=== PATIENT | male | born 1935 | race Caucasian/White ===

== ENCOUNTER 2016-07-03 04:55 | Inpatient (IN) ==
[2016-06-28 13:55] LABS: Appearance,Urine CLEAR; Bilirubin,Urine NEG (NEG); Color,Urine YELLOW; Glucose,Urine (UA) NEGATIVE (NEG); Leukocyte Esterase,Urine NEG /uL (NEG); Nitrate,Urine NEG (NEG); Protein,Urine NEG (NEG); Specific Gravity,Urine 1.021 (1.000-1.035); Urine Blood NEG mg/dL (<0.03); Urobilinogen,Urine NEG (NEG)
[2016-06-28 14:58] LABS: Blood Urea Nitrogen 19 mg/dl (8-23)
[2016-06-28 15:12] LABS: Basophils # (Auto) 0 K/mcL (0.0-0.3); Basophils % (Auto) 0.6 % (0.0-2.0); Eosinophils # (Auto) 0.1 K/mcL (0.0-0.7); Eosinophils % (Auto) 1.8 % (0.0-7.0); Granulocytes % (Auto) 63.5 % (38.0-78.0); Lymphocytes # (Auto) 1.7 K/mcL (1.5-4.8); Lymphocytes % (Auto) 27.7 % (15.5-49.0); Mean Cell Volume 94.2 fL (80.0-100.0); Mean Corpuscular Hemoglobin 31.1 pg (26.0-34.0); Monocytes # (Auto) 0.4 K/mcL (0.1-0.9); Monocytes % (Auto) 6.4 % (1.0-9.0); Platelet Count 191 K/mcL (140-440); RBC 4.03 M/mcL (4.50-5.90); Red Cell Distribution Width 13.6 % (11.5-14.5)
[2016-07-03] MEDS ORDERED: PREGABALIN 150 MG CAPSULE PO SCH (05:00)
[2016-07-03] MEDS ORDERED: ceFAZolin 1 GM VIAL IV SCH (05:00)
[2016-07-03] MEDS ORDERED: CELECOXIB 200 MG CAPSULE PO SCH (05:00)
[2016-07-03] MEDS ORDERED: oxyCODONE 10 MG TAB.ER.12H PO SCH (05:00)
[2016-07-03] MEDS ORDERED: KETOROLAC 30 MG, ROPIVACAINE HCL/PF 49.5 ML, EPINEPHrine 0.5 MG, 0.9 % SODIUM CHLORIDE ... IJ SCH (06:30)
[2016-07-03] MEDS ORDERED: ONDANSETRON 4 MG/2 ML VIAL IV ONE (07:55)
[2016-07-03] MEDS ORDERED: PROPOFOL 200 MG/20 ML VIAL IV ONE (07:55)
[2016-07-03] MEDS ORDERED: TRANEXAMIC ACID 1,000 MG/10 ML VIAL IV ONE (07:55)
[2016-07-03] MEDS ORDERED: MIDAZOLAM 5 MG/5 ML VIAL IV ONE (07:55)
[2016-07-03] MEDS ORDERED: DEXAMETHASONE 10 MG/ML VIAL IV ONE (07:55)
[2016-07-03] MEDS ORDERED: ePHEDrine 50 MG/ML AMPUL IV ONE (07:55)
[2016-07-03] MEDS ORDERED: GLYCOPYRROLATE 0.2 MG/ML VIAL IV ONE (07:55)
[2016-07-03] MEDS ORDERED: LIDOCAINE HCL/PF 100 MG/5 ML SYRINGE IV ONE (07:55)
[2016-07-03] MEDS ORDERED: ROPIVACAINE HCL/PF 30 ML VIAL IJ ONE (07:55)
[2016-07-03] MEDS ORDERED: GENTAMICIN SULFATE 800 MG/20 ML VIAL IR ONE (08:25)
[2016-07-03] MEDS ORDERED: METHOCARBAMOL 1,000 MG/10 ML VIAL IV PRN (08:32)
[2016-07-03] MEDS ORDERED: LACTATED RINGERS 250 ML IV PRN (08:32)
[2016-07-03] MEDS ORDERED: IPRATROPIUM/ALBUTEROL 3 ML AMPUL.NEB NEB PRN (08:32)
[2016-07-03] MEDS ORDERED: HYDROmorphone 2 MG/ML SYRINGE IV PRN ×2 (08:32→10:34)
[2016-07-03] MEDS ORDERED: BENZOCAINE/MENTHOL 1 LOZENGE PO PRN ×2 (08:32→09:19)
[2016-07-03] MEDS ORDERED: PROMETHAZINE 25 MG/ML VIAL IV PRN (08:32)
[2016-07-03] MEDS ORDERED: FLUMAZENIL 0.1 MG/ML ML IV PRN (08:32)
[2016-07-03] MEDS ORDERED: MEPERIDINE 25 MG/ML SYRINGE IV PRN (08:32)
[2016-07-03] MEDS ORDERED: fentaNYL 100 MCG/2 ML VIAL IV PRN (08:32)
[2016-07-03] MEDS ORDERED: NALOXONE HCL 0.4 MG/ML VIAL IV PRN (08:32)
[2016-07-03] MEDS ORDERED: ONDANSETRON 4 MG/2 ML VIAL IV PRN ×2 (08:32→09:19)
[2016-07-03] MEDS ORDERED: diphenhydrAMINE 50 MG/ML VIAL IV PRN (08:32)
[2016-07-03] MEDS ORDERED: LACTATED RINGERS 1,000 ML IV SCH (08:45)
[2016-07-03] MEDS ORDERED: POLYETHYLENE GLYCOL 3350 17 GM PACKET PO PRN (09:19)
[2016-07-03] MEDS ORDERED: DEXTROSE 50% 50 ML VIAL IV PRN (09:19)
[2016-07-03] MEDS ORDERED: ONDANSETRON ODT 4 MG TABLET SL PRN (09:19)
[2016-07-03] MEDS ORDERED: FLEETS ADULT ENEMA PR PRN (09:19)
[2016-07-03] MEDS ORDERED: TRANEXAMIC ACID 1,000 MG/10 ML VIAL IV SCH (09:19)
[2016-07-03] MEDS ORDERED: MAGNESIUM HYDROXIDE 30 ML ORAL.SUSP PO PRN (09:19)
[2016-07-03] MEDS ORDERED: METHOCARBAMOL 750 MG TABLET PO PRN (09:19)
[2016-07-03] MEDS ORDERED: BISACODYL 10 MG SUPP.RECT PR PRN (09:19)
--- NOTE | 2016-07-03 09:19 | Brief Operative Note ---
Date of procedure: 07/03/16 Pre-op diagnosis: right knee oa Post-op diagnosis: same Procedure: right total knee arthroplasty Grafts/Implants: Yes Anesthesia: spinal Complications: none Surgeon: Vincent Monroy Galvanizer: Rafael Dill Estimated blood loss (cc): 100 Tourniquet Time (Minutes): 58 Specimens Removed/Pathology: none sent Condition: stable Disposition: PACU
[2016-07-03] MEDS ORDERED: FUROSEMIDE 40 MG TABLET PO PRN (09:25)
--- NOTE | 2016-07-03 09:41 | Operative Note ---
DATE OF OPERATION: 07/03/2016 PREOPERATIVE DIAGNOSIS: Degenerative joint disease, right knee. POSTOPERATIVE DIAGNOSIS: Degenerative joint disease, right knee. PROCEDURE: Right total knee arthroplasty. SURGEON: Brandan Monroy M.D. SCRIPT MANAGER SURGEON: Rafael Dill PA-C ANESTHESIA: Spinal with LMA assist. ESTIMATED BLOOD LOSS: 100 mL COMPLICATIONS: None noted. SPECIMENS REMOVED: None DRAINS: None. TOURNIQUET TIME: 58 minutes at 300 mmHg. IMPLANTS: Depuy CMW 2 gentamycin bone cement x4 20 grams, Depuy Attune femoral posterior stabilized size 7 right cemented, Depuy Attune tibial insert fixed bearing posterior stabilized size 7, 5 mm AOX, Depuy Attune tibial base fixed bearing size 6 cemented, Depuy Attune patella medialized dome 38 mm cemented AOX. INDICATIONS: The patient has had a long-standing history of worsening pain in the knee that has failed conservative treatment. Radiographs have confirmed advanced degenerative joint disease. After a long discussion about treatment options, the patient elected to proceed with a knee arthroplasty. The risks and benefits were discussed with the patient in detail including, but not limited to, the risks of anesthesia, problems with the heart or lungs related to anesthesia, infection, compromise or injury to the nerves and blood vessels, deep venous thrombosis, pulmonary embolism, pneumonia, continued pain after surgery, worsening pain or symptoms after surgery, swelling, loss of motion, instability, leg length discrepancy, and need for repeat surgery. DESCRIPTION OF PROCEDURE: The patient was seen in the pre-anesthesia waiting room where all questions were answered and the correct side and site were identified and marked. The patient was transferred to the operating room and administered the anesthetic and given pre-operative antibiotics. A time-out was then called. The extremity was prepped and draped, exsanguinated, and the tourniquet was inflated to 300 mmHg. A midline skin incision was then made with a standard medial parapatellar arthrotomy. Debridement of the menisci, ACL, and PCL was performed followed by balancing releases in the medial lateral plane. We then established intramedullary access to both the femur and tibia in a standard fashion. The femoral guide noel was initially placed with the distal femoral guide, pinned into place, and the distal femoral cut was performed and checked with a flat plate. We then turned our attention to the tibia. The intramedullary guide was placed with the proximal tibial cutting block. The block was appropriately positioned off the affected side, varus and valgus was checked with the extra-medullary guide, and the block was pinned into place. The proximal tibial cut was performed and the tibia was prepared for the tibial implant with appropriate rotation. The tibia, femur, and posterior compartment were debrided of osteophytes, loose bodies, and meniscal fragments We then used the gap balancing technique to balance extension with the first two cuts and good balancing was obtained with a 10 millimeter gap block. We turned our attention back to the femur and used the referencing block and implant to size appropriately. Using the gap balancing technique for the flexion space we set our rotation of the femur off the tibial cut. Anesthesia gave the patient 1 gram of Tranexamic Acid via an intravenous route. We placed the 4 in 1 cutting block and made anterior, posterior, and chamfer cuts. Box plasty cuts were then made in a standard fashion for the posterior stabilized prosthesis. We then completed osteophyte release and posterior capsule release from the posterior compartment. Trials were placed and we chose the polyethylene insert thickness that provided the best stability in all planes. With the trials in place, we did a measured resection for a resurfacing patella. We sized the patella and placed the patella trial and performed a lateral facetectomy with the saw and rongeur. Good tracking was obtained. We removed all trials, irrigated and dried all cut surfaces. We cemented the components into place including tibia, femur and patella. We placed a trial liner and held the knee in full extension with the patella compressed while the cement cured. We then removed all excess cement and placed the final polyethylene tibiofemoral component. Irrigation with 3 liters of antibiotic saline was then performed using jet-lavage. We let the tourniquet down and coagulated bleeding vessels. We injected a 100 cubic centimeter volume including Ropivacaine 49.25 cubic centimeters at 5 milligrams per cubic centimeter, Ketorolac 30 milligrams, and Epinephrine 0.5 milligrams into 100 cubic centimeters volume of normal saline. We placed a deep drain and closed the retinaculum with looped #0 Maxon. We closed the subcutaneous tissue and skin in layers out to nieves in the skin. A sterile pressure dressing was applied. All needle and sponge counts were correct. The patient was transferred to the recovery room in stable condition. PARISH:gena Job ID: [id number] Doc ID: [id number] Brandan Monroy MD
--- NOTE | 2016-07-03 10:59 | XRay Report ---
CLINICAL INFORMATION: Postop total knee prostheses COMPARISON: None. FINDINGS: Total knee prostheses shows near-anatomic alignment. Moderate gas and soft tissue swelling seen in the paratracheal region IMPRESSION: Interpreted and Authenticated by: Vincent Camejo 07/03/16
[2016-07-03] MEDS: 0.9 % SODIUM CHLORIDE 1,000 ML IV SCH ×3 (11:32→20:00)
[2016-07-03] MEDS: INSULIN LISPRO 1 UNIT/0.01 ML UNIT SQ SCH ×3 (11:37→19:59)
[2016-07-03] MEDS: 0.9 % SODIUM CHLORIDE 10 ML SYRINGE IV SCH ×2 (14:58→22:11)
[2016-07-03] MEDS: ceFAZolin 1 GM VIAL IV SCH ×2 (15:30→23:55)
[2016-07-03] MEDS: HYDROcodone/APAP 10/325MG TABLET PO PRN (17:28)
[2016-07-03] MEDS: metFORMIN 500 MG TAB.XL.24H PO SCH (17:36)
[2016-07-03] MEDS: DOCUSATE SODIUM 100 MG CAPSULE PO SCH (19:47)
[2016-07-03] MEDS: ASPIRIN 325 MG ENTERIC COATED TABLET PO SCH (19:48)
[2016-07-03] MEDS ORDERED: INSULIN GLARGINE, HUMAN 1 UNIT/0.01 ML SQ SCH (21:00)
[2016-07-03] MEDS ORDERED: SENNOSIDES 1 TABLET PO SCH (21:00)
[2016-07-03] MEDS ORDERED: POLYETHYLENE GLYCOL 3350 17 GM PACKET PO SCH (21:00)
[2016-07-04] MEDS: 0.9 % SODIUM CHLORIDE 1,000 ML IV SCH ×2 (01:34→11:49)
[2016-07-04] MEDS: 0.9 % SODIUM CHLORIDE 10 ML SYRINGE IV SCH ×2 (04:19→05:07)
[2016-07-04] MEDS ORDERED: TAMSULOSIN 0.4 MG CAPSULE PO ONE (07:27)
[2016-07-04] MEDS ORDERED: glipiZIDE 5 MG TABLET PO SCH (07:30)
--- NOTE | 2016-07-04 07:30 | Discharge Summary ---
Providers - Providers Patient information: Note initiated : 07/04/16 at 7:28 am Service Date, if different from initiated Date: [] Patient: El Barkley 81 y/o M admitted on 07/03/16 for Right Total Knee Arthroplasty. Chief Complaint: [] Date of admission: 07/03/16 Discharge date: 07/04/16 Attending physician: Vincent Monroy Hospitalization Hospital course: Patient had advanced degenerative joint disease in right knee and elected to proceed with total knee arthroplasty. He was taken to the OR on 07/03/16 and tolerated the procedure well. PO day 1 he was doing great and wanted to go home. He was having issues urinating so I did give him 0.4 mg Flomax to help promote urination. He was ambulating the hallway without issues. Vital signs were stable. He denied calf pain, chest pain, SOB. Discharge diagnosis: right total knee arthroplasty Reason for admission: right degenerative joint disease Exam - Exam Incision healing: Yes Incision draining: No Incision red: No Incision swollen: No Incision inflamed: No Clean and dry: Yes Weight bearing status: as tolerated Ortho Discharge - TKA - Patient Instructions Diet: Regular Diet Activity: ambulate with assistive device, weight bearing as tolerated Total Knee Protocol: For Total Knee: Start ROM URBANO with stationary bike or rocking chair. Work on gaining full extension of knee. Posterior dislocation precautions provided. Hip abductor strengthening and gait training instructions provided. Apply Cryocuff as instructed. Dressing Care: May shower in 2 days - Follow Up Plan Disposition: Home, Self-Care Prognosis: Good Rehab Potential: Good I certify that the patient requires SNF services: No Overall status at discharge: patient is progressing back to baseline - Orders For Discharge Prescriptions: Aspirin [Ecotrin] 325 mg PO BID #60 tab.ec Docusate Sodium [Colace] 100 mg PO BID #30 capsule HYDROcodone/APAP 10/325MG [[place] 10/325Mg] 1 - 2 tab PO Q4HP PRN #60 tablet PRN Reason: Pain Pending Studies Resuscitation Status Full Code Diet Regular Diet Start SatJul 03 Lunch Acetaminophen/Hydrocodone Bitart ([place] 10/325mg) 0 tab PO Q4HP PRN PRN Reason: Pain Last Admin: 07/03/16 17:28 Dose: 1 tab Aspirin (Ecotrin) 325 mg PO BID MARK Last Admin: 07/03/16 19:48 Dose: 325 mg Diagnostic Test (Pha) (Accu-Chek) 1 each FS ACHS [facility] Last Admin: 07/03/16 19:52 Dose: 1 each Admin: 07/03/16 16:31 Dose: 1 each Admin: 07/03/16 11:36 Dose: 1 each Docusate Sodium (Colace) 100 mg PO BID [facility] Last Admin: 07/03/16 19:47 Dose: 100 mg Sodium Chloride (Sodium Chloride 0.9%) 1,000 mls @ 125 mls/hr IV .Q8H [facility] Last Admin: 07/04/16 01:34 Dose: Not Given Admin: 07/03/16 20:00 Dose: 125 mls/hr Infusion: 07/03/16 19:32 Dose: 125 mls/hr Admin: 07/03/16 18:56 Dose: Not Given Admin: 07/03/16 11:32 Dose: 125 mls/hr Insulin Glargine (Lantus) 20 unit SQ [facility] Last Admin: 07/03/16 19:59 Dose: 20 unit Insulin Human Lispro (Humalog) 0 unit SQ [facility] PRN Reason: Protocol Last Admin: 07/03/16 19:59 Dose: 10 unit Admin: 07/03/16 17:36 Dose: 10 unit Admin: 07/03/16 11:37 Dose: Not Given Metformin HCl (Glucophage) 1,000 mg PO BIDCC [facility] Last Admin: 07/03/16 17:36 Dose: 1,000 mg Polyethylene Glycol (Miralax) 17 gm PO [facility] Last Admin: 07/03/16 19:48 Dose: 17 gm Senna (Senokot) 2 tab PO [facility] Last Admin: 07/03/16 19:47 Dose: 2 tab Sodium Chloride (Saline Flush) 10 ml IV Q8 [facility] Last Admin: 07/04/16 05:07 Dose: Admin: 07/04/16 04:19 Dose: 10 ml Admin: 07/03/16 22:11 Dose: Not Given Admin: 07/03/16 14:58 Dose: Not Given Shift Summary 07/04/16 02:42 Shift Summary by Ashley Richardson Addendum entered by Ashley Richardson 07/04/16 04:50: did not receive any pain meds this shift, bright yellow urine, denied feelings of retention or urge to void. receives diuretic prn at home. Fluids stopped due to taking PO well and fluid retention hx. Hx of DVT. cryo cuffX2 this shift. Original Note: Pt A&O, up with FWW, 1 assist, steady gait. Denies pain, nausea. 2L O2 due to sats down to 89 RA at beginning of shift. BS for 491 at 1930, then 150 out. BS at 1930 for 500, straight cath for 500. since this pt has been retaining fluid, but able void small amounts after Bladder scans, hasn't been able to empty bladder fully yet, uses urinal in bed. Right knee dressing CDI, denies numbness , CPM used at 40 flexion for 75min. IV to left wrist infusing w/o difficulties. Foot pumps on. will update at bedside Initialized on 07/04/16 02:42 - END OF NOTE
[2016-07-04] MEDS: INSULIN LISPRO 1 UNIT/0.01 ML UNIT SQ SCH ×2 (07:39→11:50)
[2016-07-04] MEDS: metFORMIN 500 MG TAB.XL.24H PO SCH (07:44)
[2016-07-04] MEDS: ASPIRIN 325 MG ENTERIC COATED TABLET PO SCH (08:24)
[2016-07-04] MEDS: DOCUSATE SODIUM 100 MG CAPSULE PO SCH (08:25)
[2016-07-04] MEDS ORDERED: SIMVASTATIN 20 MG TABLET PO SCH (09:00)
[2016-07-04] MEDS ORDERED: VITAMIN D3 1,000 UNIT TABLET PO SCH (09:00)
[2016-07-04] MEDS ORDERED: LOSARTAN 50 MG TABLET PO SCH (09:00)
[2016-07-04] MEDS ORDERED: BISOPROLOL 5 MG TABLET PO SCH (09:00)
[2016-07-04] MEDS ORDERED: FOLIC ACID 1 MG TABLET PO SCH (09:00)
[2016-07-04] MEDS ORDERED: HYDROCHLOROTHIAZIDE 25 MG TABLET PO SCH (09:00)
[2016-07-04] MEDS: HYDROcodone/APAP 10/325MG TABLET PO PRN (12:42)
== END 2016-07-04 15:25 | disposition home or self-care (01) | DRG 470 ==
LOC: MEDSUR 04:55
PROVIDERS: ADMIT Orthopaedic Surgery Sports Medicine; ATTEND Orthopaedic Surgery Sports Medicine

== ENCOUNTER 2016-10-09 11:15 | Inpatient (IN) ==
[2016-10-04 12:48] LABS: Basophils # (Auto) 0 K/mcL (0.0-0.3); Basophils % (Auto) 0.4 % (0.0-2.0); Eosinophils # (Auto) 0.1 K/mcL (0.0-0.7); Eosinophils % (Auto) 1.5 % (0.0-7.0); Granulocytes % (Auto) 64.1 % (38.0-78.0); Lymphocytes # (Auto) 1.7 K/mcL (1.5-4.8); Lymphocytes % (Auto) 25.8 % (15.5-49.0); Mean Cell Volume 90.9 fL (80.0-100.0); Mean Corpuscular HGB Conc 33.5 g/dL (31.0-36.0); Mean Corpuscular Hemoglobin 30.4 pg (26.0-34.0); Monocytes # (Auto) 0.5 K/mcL (0.1-0.9); Monocytes % (Auto) 8.2 % (1.0-12.0); Platelet Count 200 K/mcL (140-440); Red Cell Distribution Width 14.2 % (11.5-14.5)
[2016-10-04 12:52] LABS: Blood Urea Nitrogen 24 mg/dl (8-23)
[2016-10-04 14:06] LABS: Appearance,Urine CLEAR; Bilirubin,Urine NEG (NEG); Color,Urine YELLOW; Glucose,Urine (UA) NEGATIVE (NEG); Leukocyte Esterase,Urine NEG /uL (NEG); Nitrate,Urine NEG (NEG); Protein,Urine NEG (NEG); Specific Gravity,Urine 1.016 (1.000-1.035); Urine Blood NEG mg/dL (<0.03); Urobilinogen,Urine NEG (NEG)
[~2016-10-09 11:15] MED LIST: CELECOXIB 200 MG CAPSULE PO SCH; KETOROLAC 30 MG, ROPIVACAINE HCL/PF 49.5 ML, EPINEPHrine 0.5 MG, 0.9 % SODIUM CHLORIDE ... IJ SCH; PREGABALIN 75 MG CAPSULE PO SCH; ceFAZolin 1 GM VIAL IV SCH; oxyCODONE 10 MG TAB.ER.12H PO SCH
[2016-10-09] MEDS ORDERED: ePHEDrine 50 MG/ML AMPUL IV ONE (13:25)
[2016-10-09] MEDS ORDERED: PROPOFOL 200 MG/20 ML VIAL IV ONE (13:25)
[2016-10-09] MEDS ORDERED: LIDOCAINE HCL/PF 100 MG/5 ML SYRINGE IV ONE (13:25)
[2016-10-09] MEDS ORDERED: ONDANSETRON 4 MG/2 ML VIAL IV ONE (13:25)
[2016-10-09] MEDS ORDERED: MIDAZOLAM 2 MG/2 ML VIAL IV ONE (13:25)
[2016-10-09] MEDS ORDERED: ROPIVACAINE HCL/PF 30 ML VIAL IJ ONE (13:25)
[2016-10-09] MEDS ORDERED: TRANEXAMIC ACID 1,000 MG/10 ML VIAL IV ONE (13:25)
[2016-10-09] MEDS ORDERED: DEXAMETHASONE 10 MG/ML VIAL IV ONE (13:25)
[2016-10-09] MEDS ORDERED: GLYCOPYRROLATE 0.2 MG/ML VIAL IV ONE (13:25)
[2016-10-09] MEDS ORDERED: GENTAMICIN SULFATE 800 MG/20 ML VIAL IR ONE (14:00)
[2016-10-09] MEDS ORDERED: BENZOCAINE/MENTHOL 1 LOZENGE PO PRN ×2 (14:55→14:59)
[2016-10-09] MEDS ORDERED: METHOCARBAMOL 750 MG TABLET PO PRN (14:55)
[2016-10-09] MEDS ORDERED: ONDANSETRON 4 MG/2 ML VIAL IV PRN ×2 (14:55→14:59)
[2016-10-09] MEDS ORDERED: MAGNESIUM HYDROXIDE 30 ML ORAL.SUSP PO PRN (14:55)
[2016-10-09] MEDS ORDERED: FLEETS ADULT ENEMA PR PRN (14:55)
[2016-10-09] MEDS ORDERED: HYDROcodone/APAP 10/325MG TABLET PO PRN (14:55)
[2016-10-09] MEDS ORDERED: TRANEXAMIC ACID 1,000 MG/10 ML VIAL IV SCH (14:55)
[2016-10-09] MEDS ORDERED: POLYETHYLENE GLYCOL 3350 17 GM PACKET PO PRN (14:55)
[2016-10-09] MEDS ORDERED: HYDROmorphone 2 MG/ML SYRINGE IV PRN ×2 (14:55→14:59)
[2016-10-09] MEDS ORDERED: BISACODYL 10 MG SUPP.RECT PR PRN (14:55)
--- NOTE | 2016-10-09 14:55 | Brief Operative Note ---
Date of procedure: 10/09/16 Pre-op diagnosis: left knee oa Post-op diagnosis: same Procedure: left total knee arthroplasty Grafts/Implants: Yes Anesthesia: spinal Complications: none Surgeon: Vincent Monroy Platen Builder Up: Sonali Ramos Estimated blood loss (cc): 150 Tourniquet Time (Minutes): 51 Specimens Removed/Pathology: none sent Condition: stable Disposition: PACU
[2016-10-09] MEDS ORDERED: PROMETHAZINE 25 MG/ML VIAL IV PRN (14:59)
[2016-10-09] MEDS ORDERED: LACTATED RINGERS 250 ML IV PRN (14:59)
[2016-10-09] MEDS ORDERED: fentaNYL 100 MCG/2 ML VIAL IV PRN (14:59)
[2016-10-09] MEDS ORDERED: FLUMAZENIL 0.1 MG/ML ML IV PRN (14:59)
[2016-10-09] MEDS ORDERED: NALOXONE HCL 0.4 MG/ML VIAL IV PRN (14:59)
[2016-10-09] MEDS ORDERED: diphenhydrAMINE 50 MG/ML VIAL IV PRN (14:59)
[2016-10-09] MEDS ORDERED: IPRATROPIUM/ALBUTEROL 3 ML AMPUL.NEB NEB PRN (14:59)
[2016-10-09] MEDS ORDERED: METHOCARBAMOL 1,000 MG/10 ML VIAL IV PRN (14:59)
[2016-10-09] MEDS ORDERED: MEPERIDINE 25 MG/ML SYRINGE IV PRN (14:59)
[2016-10-09] MEDS ORDERED: LACTATED RINGERS 1,000 ML IV SCH ×2 (15:00)
--- NOTE | 2016-10-09 16:27 | Operative Note ---
DATE OF OPERATION: 10/09/2016 PREOPERATIVE DIAGNOSIS: Degenerative joint disease, left knee. POSTOPERATIVE DIAGNOSIS: Degenerative joint disease, left knee. PROCEDURE: Left total knee arthroplasty. SURGEON: Brandan Monroy M.D. LABOR REPRESENTATIVE SURGEON: Sonali Ramos PA-C. ANESTHESIA: Spinal with LMA assist. ESTIMATED BLOOD LOSS: 100 mL. COMPLICATIONS: None noted. SPECIMENS REMOVED: None. DRAINS: None. TOURNIQUET TIME: 51 minutes at 300 mmHg. IMPLANTS: DePuy Attune tibial base fixed bearing size 6 cemented; DePuy Attune patella medialized dome 38 mm cemented AOX; DePuy Attune tibial insert fixed bearing posterior stabilized size 7, 6 mm AOX; DePuy Attune femoral posterior stabilized size 7 left cemented. INDICATIONS: The patient has had a long-standing history of worsening pain in the knee that has failed conservative treatment. Radiographs have confirmed advanced degenerative joint disease. After a long discussion about treatment options, the patient elected to proceed with a knee arthroplasty. The risks and benefits were discussed with the patient in detail including, but not limited to, the risks of anesthesia, problems with the heart or lungs related to anesthesia, infection, compromise or injury to the nerves and blood vessels, deep venous thrombosis, pulmonary embolism, pneumonia, continued pain after surgery, worsening pain or symptoms after surgery, swelling, loss of motion, instability, leg length discrepancy, and need for repeat surgery. DESCRIPTION OF PROCEDURE: The patient was seen in the pre-anesthesia waiting room where all questions were answered and the correct side and site were identified and marked. The patient was transferred to the operating room and administered the anesthetic and given pre-operative antibiotics. A time-out was then called. The extremity was prepped and draped, exsanguinated, and the tourniquet was inflated to 300 mmHg. A midline skin incision was then made with a standard medial parapatellar arthrotomy. Debridement of the menisci, ACL, and PCL was performed followed by balancing releases in the medial lateral plane. We then established intramedullary access to both the femur and tibia in a standard fashion. The femoral guide noel was initially placed with the distal femoral guide, pinned into place, and the distal femoral cut was performed and checked with a flat plate. We then turned our attention to the tibia. The intramedullary guide was placed with the proximal tibial cutting block. The block was appropriately positioned off the affected side, varus and valgus was checked with the extra-medullary guide, and the block was pinned into place. The proximal tibial cut was performed and the tibia was prepared for the tibial implant with appropriate rotation. The tibia, femur, and posterior compartment were debrided of osteophytes, loose bodies, and meniscal fragments We then used the gap balancing technique to balance extension with the first two cuts and good balancing was obtained with a 10 millimeter gap block. We turned our attention back to the femur and used the referencing block and implant to size appropriately. Using the gap balancing technique for the flexion space we set our rotation of the femur off the tibial cut. Anesthesia gave the patient 1 gram of Tranexamic Acid via an intravenous route. We placed the 4 in 1 cutting block and made anterior, posterior, and chamfer cuts. Box plasty cuts were then made in a standard fashion for the posterior stabilized prosthesis. We then completed osteophyte release and posterior capsule release from the posterior compartment. Trials were placed and we chose the polyethylene insert thickness that provided the best stability in all planes. With the trials in place, we did a measured resection for a resurfacing patella. We sized the patella and placed the patella trial and performed a lateral facetectomy with the saw and rongeur. Good tracking was obtained. We removed all trials, irrigated and dried all cut surfaces. We cemented the components into place including tibia, femur and patella. We placed a trial liner and held the knee in full extension with the patella compressed while the cement cured. We then removed all excess cement and placed the final polyethylene tibiofemoral component. Irrigation with 3 liters of antibiotic saline was then performed using jet-lavage. We let the tourniquet down and coagulated bleeding vessels. We injected a 100 cubic centimeter volume including Ropivacaine 49.25 cubic centimeters at 5 milligrams per cubic centimeter, Ketorolac 30 milligrams, and Epinephrine 0.5 milligrams into 100 cubic centimeters volume of normal saline. We placed a deep drain and closed the retinaculum with looped #0 Maxon. We closed the subcutaneous tissue and skin in layers out to nieves in the skin. A sterile pressure dressing was applied. All needle and sponge counts were correct. The patient was transferred to the recovery room in stable condition. Renetta Job ID: [id number] Doc ID: [id number] Brandan Monroy MD
--- NOTE | 2016-10-09 16:29 | XRay Report ---
HISTORY: Reason for Exam:Post-Op Total Knee FINDINGS: There is a well positioned total knee prosthesis. Large joint effusion is present. Above the patella there is a 0.8 x 2.2 cm soft tissue calcification. This may be a dystrophic calcification in the quadriceps tendon. Anterior and medial to the joint there are small well circumscribed soft tissue calcifications. These could also be dystrophic calcifications. There is no evidence of fracture. Moderate amount calcified plaque is present in the popliteal and distal superficial femoral arteries. IMPRESSION: Well-positioned left knee prosthesis Interpreted and Authenticated by: Justin Bower 10/09/16
[2016-10-09] MEDS: KETOROLAC 15 MG/ML VIAL IV SCH (17:38)
[2016-10-09] MEDS: 0.9 % SODIUM CHLORIDE 1,000 ML IV SCH ×2 (17:38→17:43)
[2016-10-09] MEDS: metFORMIN 500 MG TABLET PO SCH (17:57)
[2016-10-09] MEDS ORDERED: SENNOSIDES 1 TABLET PO SCH (21:00)
[2016-10-09] MEDS ORDERED: INSULIN GLARGINE, HUMAN 1 UNIT/0.01 ML SQ SCH (21:00)
[2016-10-09] MEDS: ASPIRIN 325 MG ENTERIC COATED TABLET PO SCH (21:21)
[2016-10-09] MEDS: DOCUSATE SODIUM 100 MG CAPSULE PO SCH (21:21)
[2016-10-09] MEDS: ceFAZolin 1 GM VIAL IV SCH (21:21)
[2016-10-09] MEDS: INSULIN LISPRO 1 UNIT/0.01 ML UNIT SQ SCH (21:33)
[2016-10-09] MEDS: 0.9 % SODIUM CHLORIDE 10 ML SYRINGE IV SCH (21:34)
[2016-10-10] MEDS: KETOROLAC 15 MG/ML VIAL IV SCH ×2 (00:31→05:14)
[2016-10-10] MEDS: 0.9 % SODIUM CHLORIDE 1,000 ML IV SCH ×2 (02:41→08:30)
[2016-10-10] MEDS: ceFAZolin 1 GM VIAL IV SCH (04:27)
[2016-10-10] MEDS: 0.9 % SODIUM CHLORIDE 10 ML SYRINGE IV SCH (05:15)
--- NOTE | 2016-10-10 06:44 | Orthopedic Progress Note ---
Subjective Patient information: Note initiated : 10/10/16 at 6:43 am Service Date, if different from initiated Date: [] Patient: El Barkley 81 y/o M admitted on 10/09/16 for Left Total Knee Arthroplasty. Chief Complaint: [] Interval history: doing well. pain under control Objective Vital signs: Vital Signs Temp Pulse Resp BP Pulse Ox 10/10/16 04:00 98.2 F 84 16 101/60 94 10/09/16 23:15 98.2 F 91 H 16 98/61 95 10/09/16 21:30 100/63 10/09/16 21:14 95 10/09/16 21:13 95 10/09/16 20:00 95 10/09/16 19:00 97.7 F 88 16 92/52 96 10/09/16 18:24 97.1 F 99 H 20 101/66 92 10/09/16 17:34 97.8 F 18 115/82 93 10/09/16 17:17 97.6 F 18 101/68 92 10/09/16 17:02 97.6 F 18 102/68 92 10/09/16 16:47 97.8 F 18 103/67 92 10/09/16 16:32 97.2 F 18 99/68 93 10/09/16 16:18 97.1 F 18 107/65 91 10/09/16 16:05 97.5 F 83 13 116/61 94 10/09/16 15:49 83 18 103/57 99 10/09/16 15:39 73 12 103/57 96 10/09/16 15:24 97.5 F 76 13 104/63 96 10/09/16 14:55 91 10/09/16 11:30 97.9 F 16 110/65 97 10/09/16 11:15 97.9 F 16 110/65 97 Intake and Output 10/09/16 10/10/16 10/10/16 21:59 05:59 13:59 Intake Total 2620 / 2620 1375 / 1375 Output Total 800 / 800 325 / 325 Balance 1820 / 1820 1050 / 1050 Intake: IV 2200 / 2200 1000 / 1000 Sodium Chloride 0.9% 1, 1000 / 1000 000 ml @ 125 mls/hr IV . Q8H [facility] Rx#:[id number] Oral 420 / 420 375 / 375 Output: Urine Catheter Amount 600 / 600 Void Amount 100 / 100 325 / 325 Estimated Blood Loss 100 / 100 Other: Meal Dinner Percent of Meal Consumed 100% Feeding Ability Independent Weight 167 lb 178 lb 8 oz Intake & Output: Intake & Output 10/09/16 10/10/16 10/10/16 21:59 05:59 13:59 Intake Total 2620 / 2620 1375 / 1375 Output Total 800 / 800 325 / 325 Balance 1820 / 1820 1050 / 1050 Weight 167 lb 178 lb 8 oz Intake: IV 2200 / 2200 1000 / 1000 Sodium Chloride 0.9% 1, 1000 / 1000 000 ml @ 125 mls/hr IV . Q8H [facility] Rx#:[id number] Oral 420 / 420 375 / 375 Output: Urine Catheter Amount 600 / 600 Void Amount 100 / 100 325 / 325 Estimated Blood Loss 100 / 100 Other: Meal Dinner Percent of Meal Consumed 100% Feeding Ability Independent Incision: Yes healing Incision clean and dry: Yes Dressing: Yes clean, Yes dry, Yes intact Weight bearing status: full Neurological exam IM: Yes abnormal gait, Yes alert, Yes oriented X3, Yes motor sensory intact, Yes neurovascular intact Extremities exam IM: No calf tenderness, Yes Foot pink and warm, Yes neurovascular intact - Labs CBC & BMP: 10/04/16 11:01 10/04/16 11:01 Labs: Orthopedic Labs 10/04/16 11:01 PT 13.4 INR 1.0 10/10/16 10/04/16 05:31 11:01 Hgb Pending 11.6 L Hct Pending 34.6 L Assessment and Plan (1) Knee osteoarthritis pod 1 s/p tka wbat pain control dvt prophylaxis d/c planning Status: Acute
--- NOTE | 2016-10-10 06:46 | Discharge Summary ---
Ortho Discharge - TKA - Patient Instructions Diet: Regular Diet Activity: activity as tolerated, ambulate with assistive device, weight bearing as tolerated Total Knee Protocol: For Total Knee: Start ROM URBANO with stationary bike or rocking chair. Work on gaining full extension of knee. Posterior dislocation precautions provided. Hip abductor strengthening and gait training instructions provided. Apply Cryocuff as instructed. Dressing Care: May shower in 2 days Patient Education: Total Knee Replacement (DC) - Problem Maintenance (1) Knee osteoarthritis Status: Acute - Follow Up Plan Follow Up Appointments: Sonali Ramos PA-C [Physician Swimming Coach] - 10/24/16 10:00 am Disposition: Home, Self-Care Prognosis: Good Rehab Potential: Good I certify that the patient requires SNF services: No Overall status at discharge: patient is progressing back to baseline - Orders For Discharge Prescriptions: Aspirin [Ecotrin] 325 mg PO BID #60 Docusate Sodium [Colace] 100 mg PO BID #60 capsule HYDROcodone/APAP 10/325MG [[place] 10/325Mg] 1 - 2 tab PO Q4HP PRN #60 tablet PRN Reason: Pain
[2016-10-10] MEDS ORDERED: glipiZIDE 5 MG TABLET PO SCH (07:30)
[2016-10-10] MEDS: INSULIN LISPRO 1 UNIT/0.01 ML UNIT SQ SCH (07:39)
[2016-10-10] MEDS: metFORMIN 500 MG TABLET PO SCH (07:40)
[2016-10-10] MEDS: DOCUSATE SODIUM 100 MG CAPSULE PO SCH (08:30)
[2016-10-10] MEDS: ASPIRIN 325 MG ENTERIC COATED TABLET PO SCH (08:30)
== END 2016-10-10 10:30 | disposition home or self-care (01) | DRG 470 ==
LOC: MEDSUR 11:15
PROVIDERS: ADMIT Orthopaedic Surgery Sports Medicine; ATTEND Orthopaedic Surgery Sports Medicine